=== PATIENT | female | born 1990 | race Caucasian/White ===

== ENCOUNTER 2018-12-09 05:31 | Emergency (ER) | payer SELFPAY ==
[~2018-12-09] VITALS: Ht 162.6 cm; Wt 49.9 kg
[~2018-12-09 05:31] MED LIST: ACHD5005 PO; AGM875T PO; DIPH-424 PO; HYDR-757 PO; HYDR25CA5 PO; IBP600T1 PO; KETO10TA77 PO; PENI500T PO; PRED20TA PO; PREN1TAB14 PO; TRAM-21 PO
[2018-12-09] MEDS ORDERED: OXYTOCIN/NORMAL SALINE 500 ML IV ONE (05:44)
--- NOTE | 2018-12-09 05:45 | NUR ---
Pt presents with partially expressed fetus, manual SVE performed and head remains in cervix at this time. Dr Mason contacted and enroute to hospital at 0538. Pt complaining UC and order for pain medications obtained by ER staff.
--- OUTSIDE RECORDS SUMMARY | 2018-12-09 05:51 | XMS REPORT ---
Author Author ETHEL BA Organization [facility] Address [address] [place] [address] Care Team Providers Care Calender Supervisor Name Role Phone ETHEL BA Unavailable PROBLEMS Type Condition ICD9-CM Code [id number] Code Onset Dates Condition Status SNOMED Code Problem Psoriasis L40.9 Active 2517945 ALLERGIES No Known Allergies ENCOUNTERS Encounter Location Date Diagnosis [place] [id number] [place] [address] Nov, Psoriasis L40.9 ; Fever, unspecified fever cause R50.9 ; Sore throat J02.9 and Influ[address] A J10.1 [facility] [id number] [place] [address]- 9283 Sep, Pneumonia of both lower lobes due to Mycoplasma pneumoniae J15.7 [facility] [id number] [place] [address] Sep, Bronchitis J40 [place] [id number] [place] [address] 95162- 6440 24 Feb, 2017 Sore throat J02.9 and Strep pharyngitis J02.0 [facility] [id number] [place] [address] 89896- 0660 Feb, [facility] [id number] [place] [address] 14256- 1361 Feb, [place] [address] [place] [address] [id number] [place] [address] 67394- [address]19 Jan, [facility] [id number] [place] [address] 76347- 5572 Jan, [place] [address] [place] [id number] [place] [address] 10 Jan, 2014 [facility] [place] [facility] [address] [id number] [place] [address] 8039 10 Jan, 2014 [facility] [place] [facility] [address] [id number] [place] [address]- 5035 Jan, 2014 [facility] [place] [facility] [address] [id number] [place] [address]- 8110 Jan, 2014 [facility] [place] [facility] [address] [id number] [place] [address]- 0885 Jan, [facility] [place] [facility] [address] [id number] [place] [address] Dec, 2014 [facility] [place] [facility] [address] [facility] [id number] [place] [address]- 0836 Dec, 2014 [facility] [place] [facility] [address] [facility] [id number] [place] [address]- 0055 Dec, 2014 [facility] [place] [facility] [address] [facility] [id number] [place] [address]- 0751 Dec, [facility] [place] [facility] [address] [facility] [id number] [place] [address]- 5334 Dec, [facility] [place] [facility] [address] [facility] [id number] [place] [address]- 3994 Dec, [facility] [place] [facility] [address] [facility] [id number] [place] [address]- 2858 Apr, [facility] [place] [facility] [address] [facility] [id number] [place] [address]- 7846 Apr, [facility] [place] [facility] [address] [facility] [id number] [place] [address]- 6613 Oct, [facility] [place] [facility] [address] [facility] [id number] [place] [address]- 1756 Oct, [facility] [place] [facility] [address] [facility] [id number] [place] [address] 8[address] Oct, [facility] [address] [facility] [id number], [place] [address] 16 Oct, 2013 [facility] [address] [facility] [id number][place] [address] 7[address] Aug, [facility] [id number] [address] Aug, [facility] [address] [facility] [id number], [place] [address] 67[address] 13 Jul, 2013 [facility] [address] [facility] [id number], [place] [address] 9663 05 Jul, 2013 [facility] [address] [facility] [id number] [address] 8244 04 Jul, 2013 [facility] [address] [address] Jul, [facility] [address] [address] Jun, [facility] [id number] [address] 6[address] Jun, [facility] [address] [address] Feb, [facility] [address] [address]60 Jan, [facility] [address] [facility] [id number] [address] 4060 Jan, [facility] [address] [facility] [id number] [address] Oct, [facility] [address] [address] Oct, [facility] [id number] 164[address] Oct, IMMUNIZATIONS No Known Immunizations SOCIAL HISTORY Never Assessed REASON FOR VISIT Respiratory c/o, PT was seen Saturday in our walk in clinic. PT has bad chest pain that is constant also with a cough and green mucus-Marion MA PLAN OF CARE Activity Details Follow Up prn Reason: VITAL SIGNS Height 64 in 2017-10-16 Weight 98.1 lbs 2017-10-16 Temperature 99.7 degrees Fahrenheit 2017-10-16 Heart Rate 102 bpm 2017-10-16 Respiratory Rate 20 2017-10-16 Oximetry 99 % 2017-10-16 BMI 16.84 kg/m2 2017-10-16 Blood pressure systolic 102 mmHg 2017-10-16 Blood pressure diastolic 66 mmHg 2017-10-16 MEDICATIONS Medication Instructions Dosage Frequency Start Date End Date Duration Status PredniSONE 20 MG Orally Once a day 2 tablet 24h Sep, Sep, 5 days Active Levaquin 500 mg Orally Once a day 1 tab 24h Sep, Oct, 10 days Active ProAir HFA 108 (90 Base) MCG/ACT Inhalation every 6 hrs 2 puffs as needed 6h Sep, 7 days Active RESULTS No Results PROCEDURES Procedure Date Ordered Result Body Site MEASURE BLOOD OXYGEN LEVEL Oct 16, 2017 INSTRUCTIONS MEDICATIONS ADMINISTERED No Known Medications MEDICAL (GENERAL) HISTORY Type Description Date Medical History strep throat, chronic Medical History heart murmur Medical History Psoriasis Medical History Anxiety Surgical History breast augmentation 2010 Hospitalization History Edema unknown dx 2015
--- OUTSIDE RECORDS SUMMARY | 2018-12-09 05:51 | XMS REPORT | Continuity of Care Document ---
Author Author [facility] Address Unknown Phone Unavailable Allergies Active Description Code Type Severity Reaction Onset Reported/Identified Relationship to Patient Clinical Status Yes No Known Drug Allergies [id number] Drug Allergy Unknown N/A 08/10/2013 Medications There is no data. Problems Date Dx Coded Attending Type Code Diagnosis Diagnosed By 08/19/2010 133.0 SCABIES 08/19/2010 682.9 CELLULITIS AND ABSCESS OF UNSPECIFIED SITES 08/19/2010 696.1 OTHER PSORIASIS 08/19/2010 KIRAN DORIPA K 133.0 SCABIES 08/19/2010 KIRAN DO LILIBETH K 682.9 CELLULITIS AND ABSCESS OF UNSPECIFIED SITES 08/19/2010 RIP KIRAN DOA K 696.1 OTHER PSORIASIS 08/19/2010 XOCHILT MANUFACTURING TECH, TIFFANY A 133.0 SCABIES 08/19/2010 XOCHILT MANUFACTURING TECH, TIFFANY A 682.9 CELLULITIS AND ABSCESS OF UNSPECIFIED SITES 08/19/2010 XOCHILT MANUFACTURING TECH, TIFFANY A 696.1 OTHER PSORIASIS 08/19/2010 KIRAN DO LILIBETH K 133.0 SCABIES 08/19/2010 KIRAN DO LILIBETH K 682.9 CELLULITIS AND ABSCESS OF UNSPECIFIED SITES 08/19/2010 QIANA CROW LILIBETH K 696.1 OTHER PSORIASIS 11/10/2010 462 PHARYNGITIS ACUTE 11/10/2010 V72.42 EXAMINATION OR TEST POSITIVE RESULT 11/10/2010 KIRAN DO LILIBETH K 462 PHARYNGITIS ACUTE 11/10/2010 KIRAN RIP CROWA K V72.42 EXAMINATION OR TEST POSITIVE RESULT 11/10/2010 XOCHILT MANUFACTURING TECH, TIFFANY A 462 PHARYNGITIS ACUTE 11/10/2010 XOCHILT MANUFACTURING TECH, TIFFANY A V72.42 EXAMINATION OR TEST POSITIVE RESULT 11/10/2010 QIANA CROW LILIBETH K 462 PHARYNGITIS ACUTE 11/10/2010 RIP KIRAN DOA K V72.42 EXAMINATION OR TEST POSITIVE RESULT 11/18/2010 Ot 522.5 11/18/2010 Ot 525.9 01/16/2011 Ot 646.83 01/16/2011 Ot 789.00 11/01/2011 034.0 STREP THROAT 11/01/2011 785.6 LYMPH NODES ENLARGEMENT 11/01/2011 KIRAN DO LILIBETH K 034.0 STREP THROAT 11/01/2011 KIRAN DORIPA K 785.6 LYMPH NODES ENLARGEMENT 11/01/2011 XOCHILT MANUFACTURING TECH, TIFFANY A 034.0 STREP THROAT 11/01/2011 XOCHILT MANUFACTURING TECH, TIFFANY A 785.6 LYMPH NODES ENLARGEMENT 11/01/2011 KIRAN DO LILIBETH K 034.0 STREP THROAT 11/01/2011 KIRAN DORIPA K 785.6 LYMPH NODES ENLARGEMENT 08/27/2012 Ot 650 08/27/2012 Ot 696.1 08/27/2012 Ot V27.0 07/13/2013 V25.01 CONTRACEPTION - ORAL CONTRACEPTION 07/13/2013 V25.12 IUD REMOVAL 07/13/2013 QIANA CROW LILIBETH K V25.01 CONTRACEPTION - ORAL CONTRACEPTION 07/13/2013 KIRAN DO LILIBETH K V25.12 IUD REMOVAL 07/13/2013 XOCHILT MANUFACTURING TECH, TIFFANY A V25.01 CONTRACEPTION - ORAL CONTRACEPTION 07/13/2013 XOCHILT MANUFACTURING TECH, TIFFANY A V25.12 IUD REMOVAL 07/13/2013 KIRAN DO LILIBETH K V25.01 CONTRACEPTION - ORAL CONTRACEPTION 07/13/2013 KIRAN DO LILIBETH K V25.12 IUD REMOVAL 07/24/2013 KIRAN DO LILIBETH K 300.00 ANXIETY STATE UNSPECIFIED 07/24/2013 KIRAN DO LILIBETH K 724.2 LUMBAGO 07/24/2013 KIRAN DO, LILIBETH K 780.4 DIZZINESS AND VERTIGO 07/24/2013 XOCHILT MANUFACTURING TECH, TIFFANY A 300.00 ANXIETY STATE UNSPECIFIED 07/24/2013 XOCHILT MANUFACTURING TECH, TIFFANY A 724.2 LUMBAGO 07/24/2013 XOCHILT MANUFACTURING TECH, TIFFANY A 780.4 DIZZINESS AND VERTIGO 07/24/2013 KIRAN DO LILIBETH K 300.00 ANXIETY STATE UNSPECIFIED 07/24/2013 KIRAN DO LILIBETH K 724.2 LUMBAGO 07/24/2013 LILIBETH KIRAN DO 780.4 DIZZINESS AND VERTIGO 11/12/2013 TIFFANY LEMON APRN 626.4 IRREGULAR MENSTRUAL CYCLE 11/12/2013 LILIBETH KIRAN DO 626.4 IRREGULAR MENSTRUAL CYCLE 05/11/2014 LILIBETH KIRAN DO 522.5 PERIAPICAL ABSCESS WITHOUT SINUS 03/28/2015 SALOMÓN VEGA MD Ot 724.2 LUMBAGO 03/28/2015 SALOMÓN VEGA MD Ot 724.4 LUMBOSACRAL NEURITIS NOS Procedures Code [place] [address] IUD REMOVAL 07/15/2013 33515 ROUTINE VENIPUNCTURE 07/24/2013 93995 URINE DRUG SCREEN (IN-HOUSE ) 07/24/2013 56555 UA W/ CULTURE IF INDICATED 07/24/2013 55744 URINE TEST (IN- HOUSE) 07/24/2013 86217 CBC 07/24/2013 69235 CMP 07/24/2013 [id number] GFR CALC (RESULT ONLY) 07/24/2013 55777 TSH 07/24/2013 22708 URINE TEST (IN- HOUSE) 11/12/2013 Results There is no data. Encounters ACCT No. Visit Date/Time Discharge Status Pt. Type Provider Facility Loc./Unit Complaint [id number] 05/11/2014 14:36:00 05/11/2014 23:59:59 CLS Outpatient LILIBETH KIRAN DO [id number] 11/12/2013 15:52:00 11/12/2013 23:59:59 CLS Outpatient TIFFANY LEMON APRN [id number] 07/24/2013 13:38:00 07/24/2013 23:59:59 CLS Outpatient LILIBETH KIRAN DO [id number] 07/13/2013 14:23:00 Document Registration [id number] 11/27/2017 16:20:00 11/27/2017 23:59:59 CLS Outpatient JUDITH CHILDS [id number] 03/28/2015 02:28:47 ACT Document Registration [id number] 03/27/2015 23:17:00 03/28/2015 00:55:00 DIS Emergency SALOMÓN VEGA MD [facility] ER LOWER BACK PAIN [id number] 08/10/2013 15:19:00 08/10/2013 17:15:00 DIS Emergency [id number] 12/09/2018 05:33:00 ACT Emergency SILVIA MCKEON, SALOMÓN [facility] ER MISCARRIAGE [id number] 08/25/2012 11:24:00 Document Registration [id number] 01/16/2011 18:32:00 Document Registration [id number] 11/17/2010 21:28:00 Document Registration
--- OUTSIDE RECORDS SUMMARY | 2018-12-09 05:51 | XMS REPORT ---
Author Author JUDITH CHILDS Organization [facility] Address [address] [place] [address] Care Team Providers Care Radiologic Technologist Name Role Phone JUDITH CHILDS Unavailable PROBLEMS Type Condition ICD9-CM Code YJJ07-PC Code Onset Dates Condition Status SNOMED Code Problem Psoriasis L40.9 Active 2199403 ALLERGIES No Known Allergies ENCOUNTERS Encounter Location Date Diagnosis [facility] [address] [address] Nov, Psoriasis L40.9 ; Fever, unspecified fever cause R50.9 ; Sore throat J02.9 and Influenza A J10.1 [facility] [id number] [place] [address]75[address]- [address]81 Sep, Pneumonia of both lower lobes due to Mycoplasma pneumoniae J15.7 [facility] [id number] [place] [address]70 [address] Sep, Bronchitis J40 [facility] [id number] [place] [address] 09743- 6185 24 Feb, 2017 Sore throat J02.9 and Strep pharyngitis J02.0 [facility] [address] [place] [address] 02299- 1284 Feb, [facility] [id number] [place] [address] 40570- 0281 Feb, [facility] [address] [address]- [address] Jan, [facility] [id number] [place] [address] 67765- 5394 Jan, [facility] [address] [place] [address]- 4055 10 Jan, 2014 [facility] [place] [facility] [address] [id number] [place] [address]- 0354 10 Jan, 2014 [facility] [place] [facility] [address] [facility] [id number] [place] [address]- 7011 09 Jan, 2014 [facility] [place] [facility] [address] [facility] [id number] [place] [address]- 1671 05 Jan, 2014 [facility] [place] [facility] [address] [facility] [id number] [place] [address]- 9779 05 Jan, 2014 [facility] [place] [facility] [address] [id number] [place] [address]- 1484 Dec, 2014 [facility] [place] [facility] [address] [facility] [id number] [place] [address]- 7947 Dec, 2014 [facility] [place] [facility] [address] [place] [address]- [address]30 Dec, 2014 [facility] [place] [facility] [address] [facility] [id number] [place] [address]- 0720 Dec, 2014 [facility] [place] [facility] [address] [place] [address]- 4661 Dec, [facility] [place] [facility] [address] [facility] [id number] [place] [address]- 6498 Dec, [facility] [place] [facility] [address] [facility] [id number] [place] [address]- 7318 Apr, [facility] [place] [facility] [address] [facility] [id number] [place] [address]- 0991 Apr, [facility] [place] [facility] [address] [facility] [id number] [place] [address]- 6318 Oct, [facility] [place] [facility] [address] [facility] [id number] [place] [address]- 0701 Oct, [facility] [place] [facility] [address] [facility] [id number] [place] [address]- 9341 Oct, [facility] [address] [facility] [id number] [place] [address]- 2755 16 Oct, 2013 [facility] [address] [facility] [id number] [place] [address]- 4830 Aug, [facility] [address] [facility] [id number] [place] [address]- 6849 Aug, [facility] [address] [facility] [id number] [place] [address]- 7357 13 Jul, 2013 [facility] [address] [facility] [id number] [place] [address]- 9475 05 Jul, 2013 [facility] [address] [facility] [id number] [place] [address]- 2045 04 Jul, 2013 [facility] [address] [facility] [id number] [place] [address]- 5176 Jul, [facility] [address] [facility] [id number], [place] [address]- 5285 30 Jun, 2013 [facility] [address] [facility] [id number] [place] [address] Jun, [facility] [address] [facility] [id number][place] [address] Feb, [facility] [address] [facility] [id number], [place] [address]- 1847 Jan, [facility] [address] [facility] [id number], [place] [address]- 2056 Jan, [facility] [address] [facility] [id number], [place] [address]- 8723 Oct, [facility] [address] [facility] [id number], [place] [address]- 4296 Oct, [facility] [address] [facility] [id number][place] [address] Oct, IMMUNIZATIONS No Known Immunizations SOCIAL HISTORY Never Assessed REASON FOR VISIT Establish Care--tcuppettRn, -Was dx with psoriasis a few years ago here at [facility]. Was to see a vocational rehabilitation administrator, but never did. , --Having hand/joint pain. Losing function in hands pt reports, --congestion, lethargy, cough x 3 days PLAN OF CARE Activity Details Follow Up 4 Weeks Reason: VITAL SIGNS Height 64 in 2017-11-27 Weight 102.4 lbs 2017-11-27 Temperature 100.6 degrees Fahrenheit 2017-11-27 Heart Rate 110 bpm 2017-11-27 Respiratory Rate 20 2017-11-27 BMI 17.58 kg/m2 2017-11-27 Blood pressure systolic 102 mmHg 2017-11-27 Blood pressure diastolic 64 mmHg 2017-11-27 MEDICATIONS Medication Instructions Dosage Frequency Start Date End Date Duration Status PredniSONE 20 mg Orally Once a day 1 tablet 24h Nov, Nov, 14 days Active ProAir HFA 108 (90 Base) MCG/ACT Inhalation every 6 hrs 2 puffs as needed 6h Sep, 7 days Not-Taking RESULTS Name Result Date Reference Range INFLUENZA A & B (IN HOUSE) 2017-11-27 INFLUENZA A Positive INFLUENZA B Negative Control + Lot # [id number] Exp date 02/04/20 STREP A (IN HOUSE) 2017-11-27 STREP A Negative Control + Lot # [id number] Exp date 08/24/2018 PROCEDURES Procedure Date Ordered Result Body Site INFLUENZA ASSAY W/OPTIC Nov 27, 2017 STREP A ASSAY W/OPTIC Nov 27, 2017 INSTRUCTIONS MEDICATIONS ADMINISTERED No Known Medications MEDICAL (GENERAL) HISTORY Type Description Date Medical History strep throat, chronic Medical History heart murmur Medical History Psoriasis Medical History Anxiety Surgical History breast augmentation 2010 Hospitalization History Edema unknown dx 2016
--- NOTE | 2018-12-09 05:52 | NUR ---
PT PASSED FETUS, CORD CLAMPED/CUT BY EDILBERTO BLANTON.
--- NOTE | 2018-12-09 05:55 | NUR ---
Post delivery of fetus and clamp/cut of cord pt resting and not wanting to see the fetus. fetus wrapped and removed from sight. fundal pressure applied and no release of placenta at this time. This RN to return to .
[2018-12-09] MEDS ORDERED: fentaNYL INJECTION 100 MCG/2 ML AMP IVP ONE (06:00)
[2018-12-09 06:02] LABS: BASOPHILS % (AUTO) 0 % (0-10); EOSINOPHILS # (AUTO) 0.2 10^3/uL (0.0-0.3); EOSINOPHILS % (AUTO) 2 % (0-10); HEMATOCRIT 30 % (35-52); HEMOGLOBIN 10.1 G/DL (11.5-16.0); LYMPHOCYTES # (AUTO) 2.3 X 10^3 (1.0-4.0); LYMPHOCYTES % (AUTO) 18 % (12-44); MEAN CORPUSCULAR HEMOGLOBIN 30 PG (25-34); MEAN CORPUSCULAR HGB CONC 34 G/DL (32-36); MEAN CORPUSCULAR VOLUME 87 FL (80-99); MEAN PLATELET VOLUME 10.9 FL (7.4-10.4); MONOCYTES # (AUTO) 0.9 X 10^3 (0.0-1.0); MONOCYTES % (AUTO) 7 % (0-12); NEUTROPHILS # (AUTO) 9.6 X 10^3 (1.8-7.8); NEUTROPHILS % (AUTO) 74 % (42-75); PLATELET COUNT 245 10^3/uL (130-400); RED BLOOD COUNT 3.42 10^6/uL (4.35-5.85); RED CELL DISTRIBUTION WIDTH 12.4 % (10.0-14.5)
--- NOTE | 2018-12-09 06:10 | NUR ---
PLACENTA PASSED ERP NOTIFIED. DR BOYCE IN TO SEE PATIENT.
[2018-12-09 06:14] LABS: ALANINE AMINOTRANSFERASE 6 U/L (0-55); ALBUMIN 3.4 GM/DL (3.2-4.5); ALKALINE PHOSPHATASE 59 U/L (40-136); BILIRUBIN,TOTAL 0.2 MG/DL (0.1-1.0); BUN/CREATININE RATIO 15; CALCIUM 8.8 MG/DL (8.5-10.1); CARBON DIOXIDE 23 MMOL/L (21-32); CHLORIDE 105 MMOL/L (98-107); CREATININE SERUM 0.65 MG/DL (0.60-1.30); GFR ESTIMATED > 60; GLUCOSE 63 MG/DL (70-105); POTASSIUM 3.3 MMOL/L (3.6-5.0); SODIUM 137 MMOL/L (135-145)
--- NOTE | 2018-12-09 06:16 | NUR ---
DR TATUM HERE SEEING PATIENT.
--- NOTE | 2018-12-09 06:31 | NUR ---
Received call from ER to return to start Pitocin and assist pt with clean up and fundal massage. Pitocin started per Dr Mason orders and pt resting comfortably with orders for discharge and prescriptions to go with pt after completion of pitocin. Fundal massage completed with no bleeding noted, pt educated on recovery phase of miscarriage and material and placenta to pathology per Dr Mason.
[2018-12-09] MEDS ORDERED: LACTATED RINGERS 1,000 ML IV ONE (06:40)
--- NOTE | 2018-12-09 06:54 | ED GU-Female ---
General Chief Complaint: -Female Stated Complaint: MISCARRIAGE Nursing Triage Note: APPROX. 16 WEEK MISCARRIAGE. SPOTTING X2 DAYS. BLEEDING THIS AM. Nursing Sepsis Screen: No Definite Risk Source: patient, EMS Exam Limitations: no limitations History of Present Illness Date Seen by Provider: Dec 09, 2018 Time Seen by Provider: 05:21 Initial Comments This 28-year-old 5 para 2 at about 16 weeks gestational age presents to the emergency room with miscarriage in progress. She arrives via EMS with a fetus partially delivered to the shoulders. Patient claims that she was unaware of . She has not received any care. She reports having unusual pains off and on for about one month along with unusual bleeding in the months of August and September. Patient seems a bit confused and disoriented which may be from fentanyl dose she received by EMS or emotional situation. She denies any drug or alcohol use. She is afebrile with stable vital signs. Exact gestational age is uncertain as there is no ultrasound and patient is not certain of her LMP. Allergies and Home Medications Allergies Coded Allergies: No Known Drug Allergies (Unverified , 08/10/13) Home Medications No Active Prescriptions or Reported Meds Patient Home Medication List Home Medication List Reviewed: Yes Review of Systems Review of Systems Constitutional: no symptoms reported EENTM: no symptoms reported Respiratory: no symptoms reported Cardiovascular: no symptoms reported Gastrointestinal: no symptoms reported Genitourinary: see HPI : Yes Musculoskeletal: no symptoms reported Skin: no symptoms reported Psychiatric/Neurological: No Symptoms Reported Endocrine: No Symptoms Reported Past Sfmksor-Wwqskt-Gxjywa Hx Patient Social History Alcohol Use: Denies Use Recreational Drug Use: No Smoking Status: Current Everyday Smoker Type Used: Cigarettes 2nd Hand Smoke Exposure: Yes Recent Foreign Travel: No Contact w/Someone Who Travel: No Recent Infectious Disease Expo: No Recent Hopitalizations: No Immunizations Up To Date Tetanus Booster (TDap): Unknown Seasonal Allergies Seasonal Allergies: No Past Medical History Surgeries: Yes (breast augmentation) Breast Respiratory: No Cardiac: No Neurological: No : Yes Last Menstrual Period: Aug 25, 2018 Hx : 5 Hx Para: 1 Reproductive Disorders: No Genitourinary: No Gastrointestinal: No Musculoskeletal: Yes Arthritis, Chronic Back Pain Endocrine: Yes (patient reports she has some type of autoimmune or immunodeficiency problem of unspecified diagnosis) HEENT: No Cancer: No Psychosocial: No Integumentary: Yes Psoriasis Blood Disorders: No Family Medical History No Pertinent Family Hx Physical Exam Vital Signs Vital Signs - First Documented 12/09/18 05:35 Temp 97.9 Pulse 94 Resp 18 B/P (MAP) 127/69 (88) Pulse Ox 100 O2 Delivery Room Air Capillary Refill : Less Than 3 Seconds Height, Weight, BMI Height: 5'4.00" Weight: 110lbs. 0oz. [id number]; 18.30 BMI Method:Stated General Appearance: WD/WN, mild distress HEENT: PERRL/EOMI, normal ENT inspection, pharynx normal Neck: normal inspection Cardiovascular: regular rate, rhythm, no edema, no murmur Respiratory: lungs clear, normal breath sounds, no respiratory distress, no accessory muscle use Gastrointestinal: normal bowel sounds, soft, tenderness (suprapubic) Pelvic: other (partially delivered fetus with head still engaged. 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 Alert and oriented 3) Skin: normal color, warm/dry Progress/Results/Core Measures Suspected Sepsis Recent Fever Within 48 Hours: No Infection Criteria Present: None New/Unexplained Altered Menta: No Sepsis Screen: No Definite Risk SIRS Temperature:97.9 Pulse: 94 Respiratory Rate: 18 Laboratory Tests 12/09/18 05:50: White Blood Count 13.0H Blood Pressure 127 /69 Mean: 88 Laboratory Tests 12/09/18 05:50: Creatinine 0.65, Platelet Count 245, Total Bilirubin 0.2 Results/Orders Lab Results Laboratory Tests Test 12/09/18 05:50 12/09/18 07:10 Range/Units White Blood Count 13.0 H 4.3-11.0 10^3/uL Red Blood Count 3.42 L 4.35-5.85 10^6/uL Hemoglobin 10.1 L 11.5-16.0 G/DL Hematocrit 30 L 35-52 % Mean Corpuscular Volume 87 80-99 FL Mean Corpuscular Hemoglobin 30 25-34 PG Mean Corpuscular Hemoglobin Concent 34 32-36 G/DL Red Cell Distribution Width 12.4 10.0-14.5 % Platelet Count 245 130-400 10^3/uL Mean Platelet Volume 10.9 H 7.4-10.4 FL Neutrophils (%) (Auto) 74 42-75 % Lymphocytes (%) (Auto) 18 12-44 % Monocytes (%) (Auto) 7 0-12 % Eosinophils (%) (Auto) 2 0-10 % Basophils (%) (Auto) 0 0-10 % Neutrophils # (Auto) 9.6 H 1.8-7.8 X 10^3 Lymphocytes # (Auto) 2.3 1.0-4.0 X 10^3 Monocytes # (Auto) 0.9 0.0-1.0 X 10^3 Eosinophils # (Auto) 0.2 0.0-0.3 10^3/uL Basophils # (Auto) 0.0 0.0-0.1 10^3/uL Sodium Level 137 135-145 MMOL/L Potassium Level 3.3 L 3.6-5.0 MMOL/L Chloride Level 105 98-107 MMOL/L Carbon Dioxide Level 23 21-32 MMOL/L Anion Gap 9 5-14 MMOL/L Blood Urea Nitrogen 10 7-18 MG/DL Creatinine 0.65 0.60-1.30 MG/DL Estimat Glomerular Filtration Rate > 60 BUN/Creatinine Ratio 15 Glucose Level 63 L 70-105 MG/DL Calcium Level 8.8 8.5-10.1 MG/DL Corrected Calcium 9.3 8.5-10.1 MG/DL Total Bilirubin 0.2 0.1-1.0 MG/DL Aspartate Amino Transf (AST/SGOT) 7 5-34 U/L Alanine Aminotransferase (ALT/SGPT) 6 0-55 U/L Alkaline Phosphatase 59 40-136 U/L Total Protein 6.0 L 6.4-8.2 GM/DL Albumin 3.4 3.2-4.5 GM/DL Urine Color YELLOW Urine Clarity CLEAR Urine pH 6 5-9 Urine Specific [place] 1.025 H 1.016-1.022 Urine Protein 1+ H NEGATIVE Urine Glucose (UA) NEGATIVE NEGATIVE Urine Ketones NEGATIVE NEGATIVE Urine Nitrite NEGATIVE NEGATIVE Urine Bilirubin NEGATIVE NEGATIVE Urine Urobilinogen NORMAL NORMAL MG/DL Urine Leukocyte Esterase 1+ H NEGATIVE Urine RBC (Auto) 4+ H NEGATIVE Urine RBC 10-25 H /HPF Urine WBC 0-2 /HPF Urine Squamous Epithelial Cells 0-2 /HPF Urine Crystals NONE /LPF Urine Bacteria FEW H /HPF Urine Casts PRESENT /LPF Urine Hyaline Casts 0-2 H /LPF Urine Mucus MODERATE H /LPF Urine Culture Indicated NO Urine Opiates Screen NEGATIVE NEGATIVE Urine Oxycodone Screen POSITIVE H NEGATIVE Urine Methadone Screen NEGATIVE NEGATIVE Urine Propoxyphene Screen NEGATIVE NEGATIVE Urine Barbiturates Screen NEGATIVE NEGATIVE Ur Tricyclic Antidepressants Screen POSITIVE H NEGATIVE Urine Phencyclidine Screen NEGATIVE NEGATIVE Urine Amphetamines Screen POSITIVE H NEGATIVE Urine Methamphetamines Screen NEGATIVE NEGATIVE Urine Benzodiazepines Screen NEGATIVE NEGATIVE Urine Cocaine Screen NEGATIVE NEGATIVE Urine Cannabinoids Screen NEGATIVE NEGATIVE My Orders Orders - SALOMÓN VEGA MD Saline Lock/Iv-Start (12/09/18 05:46) Cbc With Automated Diff (12/09/18 05:46) Comprehensive Metabolic Panel (12/09/18 05:46) Drug Screen Stat (Urine) (12/09/18 05:46) Ua Culture If Indicated (12/09/18 05:46) Oxytocin/Normal Saline (Pitocin Pre-Mix) (12/09/18 05:44) Fentanyl Injection (Sublimaze Injection (12/09/18 06:00) Saline Lock/Iv-Start (12/09/18 06:40) Lactated Ringers (Lr 1000 Ml Iv Solution (12/09/18 06:40) Medications Given in ED Current Medications Medications Dose Ordered Sig/Teddy Route Start Time Stop Time Status Last Admin Dose Admin Lactated Ringer's 1,000 ml @ 0 mls/hr Q0M ONCE IV 12/09/18 06:40 12/09/18 06:42 DC 12/09/18 06:43 0 MLS/HR Vital Signs/I&O 12/09/18 07:13 Temp 98.1 Pulse 81 Resp 18 B/P (MAP) 108/59 (75) Pulse Ox 99 O2 Delivery Room Air Capillary Refill : Less Than 3 Seconds Blood Pressure Mean: 88 Progress Note : Time: 06:56 Progress Note Patient was room to a triage room in a gun in bed. Labor and delivery nurse was present to assess the patient. The head was found to be still engaged and would not pass with gentle assistance by the labor and delivery nurse. Dr. Mason was contacted and called in for consult. By the time Dr. Mason arrived patient had passed the fetus and placenta. Fetus and placenta were taken to lab for evaluation. Prescriptions were written by Dr. Mason. Patient was encouraged to follow up as soon as possible. A liter of lactated ringer was infused. Pain was treated with fentanyl. Patient has a positive blood type and did not require RhoGAM. Prescriptions written by Dr. Mason were as follows: Ibuprofen 800 mg every 8 hours as needed Percocet 5 mg one every 6 hours as needed, #20 Doxycycline 100 mg every 12 hours, #14 Cytotec 200 g every 8 hours 3 days Departure Impression Primary Impression: Complete miscarriage Disposition: HOME, SELF-CARE Condition: Improved (ERASED) Departure-Patient Inst. Decision time for Depature: 07:03 Referrals: [facility] [place] (PCP/Family) Primary Care Physician Patient Instructions: Miscarriage Add. Discharge Instructions: Complete your antibiotics as prescribed by Dr. Mason. Follow-up with Dr. Naqvi and your primary care provider as soon as possible. Call today for appointments. Drink plenty of clear liquids. Return to care if you have any problems or concerns that need addressed. All discharge instructions reviewed with patient and/or family. Voiced understanding. Scripts No Active Prescriptions or Reported Meds Copy Copies To 1: JEFF NAQVI DO Copies To 2: LILIBETH KIRAN DO SALOMÓN VEGA MD Dec 09, 2018 06:54
[2018-12-09 07:13] VITALS: BP 108/59
[2018-12-09 07:17] LABS: BILIRUBIN,URINE NEGATIVE (NEGATIVE); CLARITY,URINE CLEAR; COLOR,URINE YELLOW; GLUCOSE, URINE (UA) NEGATIVE (NEGATIVE); KETONES,URINE NEGATIVE (NEGATIVE); LEUKOCYTE ESTERASE ,URINE 1+ (NEGATIVE); NITRITE,URINE NEGATIVE (NEGATIVE); PH,URINE 6 (5-9); PROTEIN,URINE 1+ (NEGATIVE); UROBILINOGEN,URINE NORMAL (NORMAL)
[2018-12-09 07:29] LABS: BACTERIA,URINE FEW /HPF; HYALINE CASTS, URINE 0-2 /LPF; SQUAMOUS EPITHELIAL CELL,UR 0-2 /HPF; WBC,URINE 0-2 /HPF
[2018-12-09 07:31] LABS: AMPHETAMINE SCREEN, URINE POSITIVE (NEGATIVE); BARBITURATE SCREEN URINE NEGATIVE (NEGATIVE); BENZODIAZEPINES SCREEN URINE NEGATIVE (NEGATIVE); CANNABINOID SCREEN, URINE NEGATIVE (NEGATIVE); COCAINE SCREEN URINE NEGATIVE (NEGATIVE); METHADONE STAT NEGATIVE (NEGATIVE); METHAMPHETAMINE SCREEN URINE S NEGATIVE (NEGATIVE); OPIATE SCREEN URINE NEGATIVE (NEGATIVE); OXYCODONE STAT POSITIVE (NEGATIVE); PROPOXYPHENE STAT NEGATIVE (NEGATIVE); TRICYCLIC ANTIDEPRESSANTS SCRE POSITIVE (NEGATIVE)
== END 2018-12-09 07:10 | disposition home or self-care (01) ==
LOC: EDUNIT# 05:31 → ER 05:33
DX: O03.9 Complete or unspecified spontaneous abortion without complication (principal); O99.332 Smoking (tobacco) complicating pregnancy, second trimester; F17.210 Nicotine dependence, cigarettes, uncomplicated; Z3A.16 16 weeks gestation of pregnancy; Z98.890 Other specified postprocedural states
CPT/HCPCS: 36415; 80053; 80306; 81000; 85025

== ENCOUNTER 2019-12-21 20:05 | Emergency (ER) | payer MEDICAID ==
--- NOTE | 2019-12-21 23:40 | NUR ---
Went to waiting room to call pt back to room. No response after 3 calls. Franci at registration desk states she hasn't seen anyone leave since she's been here at 2300 and nobody has came to tell her she's leaving.
== END 2019-12-21 23:41 | disposition left against medical advice (07) ==
LOC: EDUNIT# 20:05 → ER 20:06
DX: Z03.89 Encounter for observation for other suspected diseases and conditions ruled out (principal)

== ENCOUNTER 2020-08-17 05:52 | Emergency (ER) | payer MEDICAID ==
[~2020-08-17] VITALS: Ht 162 cm; Wt 57.0 kg
[2020-08-17 06:00] VITALS: BP 139/86
[2020-08-17] MEDS ORDERED: viscous lidocaine MM (06:10)
[2020-08-17] MEDS ORDERED: AMOX500C2 PO (06:10)
--- NOTE | 2020-08-17 06:10 | ED EENT ---
History of Present Illness General Stated Complaint: DENTAL PAIN Source: patient Exam Limitations: no limitations History of Present Illness Date Seen by Provider: Aug 17, 2020 Time Seen by Provider: 05:58 Initial Comments Patient to the ER by private conveyance with chief complaint of one day of pressure and pain in her right mandible leading to her right ear related to dental caries. She has not seen a dentist for this yet. She is not on antibiotics. No fevers or chills. No nausea vomiting diarrhea. 1000 mg APAP and 1200 mg Motrin prior to arrival. Allergies and Home Medications Allergies Coded Allergies: No Known Drug Allergies (Unverified , 08/10/13) Home Medications Amoxicillin 500 Mg Capsule, 500 MG PO TID Prescribed by: RAMIN BOYCE on 08/17/20 0610 [viscous lidocaine] 2% BOTTLE, 1 GM MM Q6H PRN for PAIN-BREAKTHROUGH Prescribed by: RAMIN BOYCE on 08/17/20 0610 Patient Home Medication List Home Medication List Reviewed: Yes Review of Systems Review of Systems Constitutional: No chills, No fever, No malaise Eyes: Denies Blindness, Denies Blurred Vision Ears: See HPI, Pain (R); Denies Tinnitus, Denies Bloody Discharge Nose: denies clots, denies congestion Mouth: see HPI, pain; denies swelling, denies bloody discharge, denies clear discharge, denies purulent discharge All Other Systems Reviewed Negative Unless Noted: Yes Past Ephbdec-Piseru-Ifmzst Hx Patient Social History Alcohol Use: Denies Use Recreational Drug Use: No Smoking Status: Current Everyday Smoker Type Used: Cigarettes 2nd Hand Smoke Exposure: Yes Recent Foreign Travel: No Contact w/Someone Who Travel: No Recent Hopitalizations: No Immunizations Up To Date Tetanus Booster (TDap): Unknown Seasonal Allergies Seasonal Allergies: No Past Medical History Surgeries: Yes (breast augmentation) Breast Respiratory: No Cardiac: No Neurological: No Reproductive Disorders: No Genitourinary: No Gastrointestinal: No Musculoskeletal: Yes Arthritis, Chronic Back Pain Endocrine: Yes HEENT: No Cancer: No Psychosocial: No Integumentary: Yes Psoriasis Blood Disorders: No Family Medical History No Pertinent Family Hx Physical Exam Height, Weight, BMI Height: 5'4.00" Weight: 110lbs. 0oz. [id number]; 18.30 BMI Method:Stated General Appearance: WD/WN, mild distress Eyes: bilateral eye normal inspection, bilateral eye PERRL, bilateral eye EOMI Ears: bilateral ear auricle normal, bilateral ear canal normal, bilateral ear TM normal Nose: normal inspection; No active bleeding, No discharge Mouth/Throat: dental tenderness (r mandible), other (dental caries) Neck: full range of motion, normal inspection, tender lateral (r) Progress/Results/Core Measures Results/Orders My Orders Orders - RAMIN BOYCE Lidocaine 2% Viscous 15 Ml (Xylocaine Vi (08/17/20 06:15) Departure Impression Primary Impression: Dental abscess Disposition: 01 HOME, SELF-CARE Condition: Stable Departure-Patient Inst. Decision time for Depature: 06:07 Referrals: [facility] (PCP/Family) Primary Care Physician Patient Instructions: Tooth Abscess (DC) Add. Discharge Instructions: Warm compresses applied to the jaw for pain. Tylenol 1000 mg every 8 hours as necessary for pain. Ibuprofen 800 mg every 8 hours as necessary for pain. Viscous lidocaine 1 g applied to gauze every 6 hours as necessary for pain applied directly over the tooth in question. Amoxicillin one capsule 3 times a day for the next week. Follow-up with the dentist. Scripts [viscous lidocaine] 2% BOTTLE No Conflict Check 1 GM MM Q6H PRN for PAIN-BREAKTHROUGH for 3 Days, #30 GM 0 Refills Prov: RAMIN BOYCE 08/17/20 Amoxicillin (Amoxicillin) 500 Mg Capsule 500 MG PO TID, #21 CAP 0 Refills Prov: RAMIN BOYCE 08/17/20 RAMIN BOYCE Aug 17, 2020 06:10
[2020-08-17] MEDS ORDERED: LIDOCAINE 2% VISCOUS 15 ML UDC PO ONE (06:15)
== END 2020-08-17 06:19 | disposition home or self-care (01) ==
LOC: EDUNIT# 05:52 → ER 05:55
DX: K04.7 Periapical abscess without sinus (principal); F17.210 Nicotine dependence, cigarettes, uncomplicated
CPT/HCPCS: 99283